=== PATIENT | male | born 1930 | race Caucasian/White ===

== ENCOUNTER 2016-08-13 01:00 | Emergency (ER) | payer MEDICARE ==
[2006-02-08 12:46] VITALS: BP 127/80
[~2016-08-13] VITALS: Ht 182.9 cm; Wt 72.7 kg
[~2016-08-13 01:00] MED LIST: ALBUTEROL SULF0.5 M1 IH; ALBUTEROL0.83 MG/ML; ALBUTEROL0.83 MG/ML IH; ALDACTONE 25MG25 MG PO; AMOXICILLIN875 MG PO; ASPI325T6 PO; ASPIR-LOX325 MG PO; ASPIRIN 32325 MG/TAB PO; ASPIRIN 81M81 MG/TA2 PO; ASPIRIN E.C. 8181 MG PO; ATENOLOL25 MG PO; AVAPRO TAB150 MG/TAB PO; CARDENE 20MG CA20 M1 PO; CARDENE20 MG PO; CLEOCIN HCL300 MG PO; COLACE 100100 MG/CAP PO; CORDARONE200 MG/TAB PO; COREG 6.256.25 MG/TA PO; COUMADIN 1MG1 MG/TAB PO; COUMADIN 2MG2 MG/TAB PO; COUMADIN 5MG5 MG/TAB PO; COUMADIN PO; DALIRESP500 MCG PO; DOXYCYCLINE 10100 MG PO; ELIQUIS 5MG PO; FERRO-TIME325 MG PO; FERROUS SU325 MG/TAB PO; FISH OIL CONC1000 MG PO; FORADIL AERO0.012 MG IH; FORADIL AERO0.012 MG PO; FORADIL PO; GLUCOPHAGE1000 MG PO; GLUCOPHAGE500 MG PO; GLUCOPHAGE500 MG/TAB PO; IMDUR 30MG30 MG/TAB PO; IMDUR 60MG60 MG/TAB PO; INCRUSE EL62.5 MCG/A IH; IRON325 M1 PO; KEPPRA 500MG500 MG PO; KEPPRA750 MG PO; LANOXIN 0.120.125 MG PO; LASIX 20MG TABL20 MG PO; LEVAQUIN 5500 MG/TA1 PO; LEVAQUIN 750MG750 M1 PO; LEXAPRO 10MG10 MG PO; LIPITOR 40MG TA40 MG PO; LIPITOR 80MG80 MG PO; LIPITOR20 MG PO; LIPITOR40 MG PO; LOPRESSOR 225 MG/TAB PO; LORTAB 5/500 501 TAB PO; LOVENOX100 MG/ML SC; METFORMIN500 MG PO; MIRALAX PA17 GM/Dose PO; MUCINEX 60600 MG/TA1 PO; MUCINEX D 600 M1 TER PO; MUCINEX1200 MG PO; MUCINEX600 M1 PO; MUCUS RELIEF200 MG PO; NEXIUM40 MG PO; NITROQUICK0.4 MG SL; NITROSTAT0.4 MG/TAB PO; NITROSTAT0.4 MG/TAB SL; NORCO 325 MG-51 TAB PO; OMEGA 31000 MG PO; OMEGA-3 FISH1000 MG PO; PACERONE200 MG PO; PEPCID 20MG TAB20 MG PO; PERFOROMIS20 MCG/2 M IH; PLAVIX 75MG TAB75 MG PO; PREDNISONE20 MG PO; PREVACID 15MG15 MG PO; PREVACID SOLUTA15 M1 PO; PROTONIX 40MG T40 MG PO; PULMICORT0.25 MG/2 IH; PULMICORT0.5 MG/21 IH; PULMICORT90 MCG/Act IH; QVAR0.08 MG/AC IH; RANEXA 500MG T500 MG PO; RAPAFLO4 MG PO; RAPAFLO8 MG PO; REQUIP 1MG T1 MG/TAB; REQUIP 1MG T1 MG/TAB PO; REQUIP0.25 MG PO; ROXANOL 20MG20 MG/ML; RT SPIRIVA18 MCG IH; SENNA8.6 MG PO; SENOKOT8.6 MG PO; SINEMET 25/101 UDTAB PO; SPIRIVA HANDIH18 MCG IH; SPIRIVA18 MCG IH; TENORMIN 2525 MG/TAB PO; TUSS PO; TYLENOL 325MG325 MG PO; TYLENOL 500MG500 MG PO; VENTOLIN0.09 MG IH; VICODIN 5/5001 UDTAB PO; VITAMIN B-1000 MCG/T PO; VITAMIN B121000 MC2 SL; XANAX 0.5MG0.5 MG PO; XANAX XR1 MG PO; ZANTAC; ZANTAC150 MG PO
[2016-08-13] MEDS ORDERED: BACTRIM DS 8001 TAB PO (01:32)
[2016-08-13] MEDS ORDERED: 00186-0370-20 IH (01:39)
[2016-08-13] MEDS ORDERED: COREG12.5 MG PO (01:41)
[2016-08-13] MEDS ORDERED: COZAAR 25MG25 MG/TAB PO (01:42)
[2016-08-13] MEDS ORDERED: ULTRAM 50MG TAB50 MG PO (02:09)
[2016-08-13] MEDS ORDERED: PERCOCET 325 MG1 TA2 PO (02:09)
[2016-08-13 02:19] VITALS: BP 115/66; PULSE 63; TEMP 98.2
== END 2016-08-13 02:25 | disposition home or self-care (01) ==
LOC: COL.ER 01:00
DX: H60.11 Cellulitis of right external ear (principal); I10 Essential (primary) hypertension; Z95.0 Presence of cardiac pacemaker

== ENCOUNTER 2016-10-10 17:18 | Emergency (ER) | payer MEDICARE ==
[2006-02-08 12:46] VITALS: BP 127/80
[~2016-10-10] VITALS: Ht 182.9 cm; Wt 75.9 kg
[~2016-10-10 17:18] MED LIST changes: +00186-0370-20 IH; +BACTRIM DS 8001 TAB PO; +COREG12.5 MG PO; +COZAAR 25MG25 MG/TAB PO; +PERCOCET 325 MG1 TA2 PO; +ULTRAM 50MG TAB50 MG PO
[2016-10-10 17:20] VITALS: TEMP 97.9
[2016-10-10 20:01] VITALS: BP 104/84; PULSE 71
== END 2016-10-10 20:01 | disposition home or self-care (01) ==
LOC: COL.ER 17:18
DX: I69.951 Hemiplegia and hemiparesis following unspecified cerebrovascular disease affecting right dominant side (principal)

== ENCOUNTER → 2016-11-08 | Outpatient (CLI) | payer MEDICARE | LOC: COL.RAD 07:28 | DX: I71.4 Abdominal aortic aneurysm, without rupture (principal); K40.90 Unilateral inguinal hernia, without obstruction or gangrene, not specified as recurrent; R22.2 Localized swelling, mass and lump, trunk ==

== ENCOUNTER → 2016-12-10 | Outpatient (CLI) | payer MEDICARE | LOC: COL.RAD 10:49 | DX: I51.7 Cardiomegaly (principal); I77.811 Abdominal aortic ectasia; I70.208 Unspecified atherosclerosis of native arteries of extremities, other extremity; N28.1 Cyst of kidney, acquired; I70.1 Atherosclerosis of renal artery; K55.1 Chronic vascular disorders of intestine | CPT/HCPCS: Q9967 ==

== ENCOUNTER 2017-05-30 18:23 | Emergency (ER) | payer MEDICARE ==
[2006-02-08 12:46] VITALS: BP 127/80
[~2017-05-30] VITALS: Ht 182.9 cm; Wt 72.7 kg
[2017-05-30 18:26] VITALS: TEMP 98.8
[2017-05-30 19:02] LABS: BASO # 0.1 (0.0-0.2); EOS # 0.2 (0.0-0.7); EOS % 4.6 % (0-4.0); GRAN # 3.3 (1.4-6.5); GRAN % 62.6 % (42.2-75.2); HEMATOCRIT 33.8 % (42.0-52.0); HEMOGLOBIN 11.1 g/dl (13.5-18.0); LYMPH # 1.2 (1.2-3.4); LYMPH % 23.2 % (20.0-51.0); MEAN CELL VOLUME 96 fl (80.0-100.0); MEAN CORPUSCULAR HEMOGLOBIN 31 pg (27.0-31.0); MEAN CORPUSCULAR HGB CONC 33 g/dl (33.0-37.0); MEAN PLATELET VOLUME 10.1 fl (7.4-10.4); MONO # 0.4 (0.1-0.6); MONO % 8.4 % (1.7-9.3); PLATELET COUNT 121 K/mm3 (130-400); RED BLOOD COUNT 3.54 M/mm3 (4.20-5.60); WHITE BLOOD COUNT 5.3 K/mm3 (4.8-10.8)
[2017-05-30 19:11] LABS: ADJUSTED CALCIUM 9.4 mg/dL (8.4-10.2); ALANINE AMINOTRANSFERASE 21 U/L (21-72); ALBUMIN 3.6 gm/dL (3.5-5.0); ALKALINE PHOSPHATASE 89 U/L (50-136); ANION GAP 6 mmol/L (7-16); BILIRUBIN,TOTAL 0.5 mg/dL (0.0-1.0); BLOOD UREA NITROGEN 25 mg/dL (9-20); CALCIUM 9.1 mg/dL (8.4-10.2); CARBON DIOXIDE 27 mmol/L (22-30); CHLORIDE 105 mmol/L (98-107); CREATININE, serum 1.05 mg/dL (0.66-1.25); GLUCOSE 78 mg/dL (74-106); POTASSIUM 4.5 mmol/L (3.4-5.0); SODIUM 139 mmol/L (137-145); TOTAL PROTEIN 6.4 gm/dL (6.4-8.2)
[2017-05-30 19:30] LABS: TROPONIN-I < 0.012 ng/mL (0.000-0.034)
[2017-05-30 21:08] LABS: COLLECTION METHOD CLEAN CATCH
[2017-05-30 21:15] LABS: MUCOUS Present /lpf; PH 5 (5-8); SQUAMOUS EPITHELIAL 0-2 /hpf; URINE APPEARANCE Clear; URINE BACTERIA None Seen /hpf; URINE BILIRUBIN Positive (NEGATIVE); URINE BLOOD Negative (NEGATIVE); URINE COLOR Yellow; URINE GLUCOSE Negative (NEGATIVE); URINE KETONE Trace (NEGATIVE); URINE LEUKOCYTE ESTERASE Trace (NEGATIVE); URINE PROTEIN(semi-quant) Negative (NEGATIVE)
[2017-05-30] MEDS ORDERED: NITROSTAT0.4 MG/TAB SL (21:34)
[2017-05-30 22:05] VITALS: BP 121/73; PULSE 60
== END 2017-05-30 22:48 | disposition home or self-care (01) ==
LOC: COL.ER 18:23
PROVIDERS: Emergency Medicine
DX: I25.119 Atherosclerotic heart disease of native coronary artery with unspecified angina pectoris (principal); R47.01 Aphasia; M62.81 Muscle weakness (generalized); I10 Essential (primary) hypertension; I48.91 Unspecified atrial fibrillation; G20 Parkinson's disease; Z95.5 Presence of coronary angioplasty implant and graft; Z79.84 Long term (current) use of oral hypoglycemic drugs; Z79.82 Long term (current) use of aspirin; Z95.0 Presence of cardiac pacemaker

== ENCOUNTER 2018-05-28 13:54 | Emergency (ER) | payer MEDICARE ==
[2006-02-08 12:46] VITALS: BP 127/80
[~2018-05-28] VITALS: Ht 172.7 cm; Wt 72.7 kg
[2018-05-28 13:57] VITALS: TEMP 97.2
[2018-05-28 15:21] LABS: BASO % 0.7 % (0.0-2.0); EOS # 0.2 (0.0-0.7); EOS % 3.8 % (0-4.0); GRAN # 3.7 (1.4-6.5); GRAN % 66.5 % (42.2-75.2); HEMOGLOBIN 11.3 g/dl (13.5-18.0); LYMPH # 1.2 (1.2-3.4); LYMPH % 21.3 % (20.0-51.0); MEAN CELL VOLUME 93 fl (80.0-100.0); MEAN CORPUSCULAR HEMOGLOBIN 31 pg (27.0-31.0); MEAN CORPUSCULAR HGB CONC 33 g/dl (33.0-37.0); MEAN PLATELET VOLUME 10.3 fl (7.4-10.4); MONO # 0.4 (0.1-0.6); MONO % 7.3 % (1.7-9.3); PLATELET COUNT 117 K/mm3 (130-400); RED BLOOD COUNT 3.68 M/mm3 (4.20-5.60)
[2018-05-28 15:22] LABS: HEMATOCRIT 34.2 % (42.0-52.0)
[2018-05-28 15:24] LABS: PROTHROMBIN TIME 11.8 SECONDS (9.7-12.8)
[2018-05-28 15:27] LABS: PARTIAL THROMBOPLASTIN TIME 34.5 SECONDS (26.0-37.0)
[2018-05-28 15:35] LABS: ALANINE AMINOTRANSFERASE 27 U/L (21-72); ALBUMIN 3.7 gm/dL (3.5-5.0); ALKALINE PHOSPHATASE 98 U/L (50-136); ANION GAP 6 mmol/L (7-16); AST,SGOT 23 U/L (15-37); BILIRUBIN,TOTAL 0.5 mg/dL (0.0-1.0); BLOOD UREA NITROGEN 17 mg/dL (9-20); CALCIUM 8.9 mg/dL (8.4-10.2); CARBON DIOXIDE 26 mmol/L (22-30); CHLORIDE 106 mmol/L (98-107); CREATININE, serum 0.78 mg/dL (0.66-1.25); GLUCOSE 162 mg/dL (74-106); POTASSIUM 4.4 mmol/L (3.4-5.0); SODIUM 138 mmol/L (137-145); TOTAL PROTEIN 6.6 gm/dL (6.4-8.2)
[2018-05-28 15:48] LABS: TROPONIN-I < 0.012 ng/mL (0.000-0.034)
[2018-05-28 19:22] VITALS: BP 134/75; PULSE 60
== END 2018-05-28 19:25 | disposition home or self-care (01) ==
LOC: COL.ER 13:54
PROVIDERS: Family Medicine
DX: R07.89 Other chest pain (principal); R41.82 Altered mental status, unspecified; G20 Parkinson's disease; Z79.82 Long term (current) use of aspirin
CPT/HCPCS: J2060

== ENCOUNTER 2018-05-31 19:17 | Emergency (ER) | payer MEDICARE ==
[2006-02-08 12:46] VITALS: BP 127/80
[~2018-05-31] VITALS: Ht 180.3 cm; Wt 72.7 kg
[2018-05-31 19:32] VITALS: TEMP 98.2
[2018-05-31 20:26] LABS: BASO % 0.8 % (0.0-2.0); EOS # 0.3 (0.0-0.7); EOS % 6.3 % (0-4.0); GRAN % 59.3 % (42.2-75.2); HEMATOCRIT 34.2 % (42.0-52.0); HEMOGLOBIN 11.4 g/dl (13.5-18.0); LYMPH # 1.3 (1.2-3.4); LYMPH % 24.8 % (20.0-51.0); MEAN CELL VOLUME 93 fl (80.0-100.0); MEAN CORPUSCULAR HEMOGLOBIN 31 pg (27.0-31.0); MEAN CORPUSCULAR HGB CONC 33 g/dl (33.0-37.0); MEAN PLATELET VOLUME 10.4 fl (7.4-10.4); MONO # 0.4 (0.1-0.6); MONO % 8.4 % (1.7-9.3); PLATELET COUNT 131 K/mm3 (130-400); RED BLOOD COUNT 3.66 M/mm3 (4.20-5.60)
[2018-05-31 20:39] LABS: ALBUMIN 3.7 gm/dL (3.5-5.0); BILIRUBIN,TOTAL 0.4 mg/dL (0.0-1.0); CALCIUM 8.9 mg/dL (8.4-10.2); CREATININE, serum 0.86 mg/dL (0.66-1.25); POTASSIUM 4.2 mmol/L (3.4-5.0); TOTAL PROTEIN 6.6 gm/dL (6.4-8.2)
[2018-05-31 20:44] LABS: ERYTHROCYTE SEDIMENTATION RATE 13 mm/hr (0-30)
[2018-05-31 22:02] VITALS: BP 121/72; PULSE 61
== END 2018-05-31 22:03 | disposition home or self-care (01) ==
LOC: COL.ER 19:17
PROVIDERS: Emergency Medicine
DX: R51 Headache (principal)

== ENCOUNTER → 2018-06-10 | Outpatient (CLI) | payer MEDICARE | LOC: COL.RAD 09:25 | DX: I65.23 Occlusion and stenosis of bilateral carotid arteries (principal); I65.01 Occlusion and stenosis of right vertebral artery; M96.1 Postlaminectomy syndrome, not elsewhere classified | CPT/HCPCS: Q9967 ==

== ENCOUNTER → 2018-07-10 | Outpatient (CLI) | payer MEDICARE | LOC: COL.RAD 07:45 | DX: I65.23 Occlusion and stenosis of bilateral carotid arteries (principal); I67.1 Cerebral aneurysm, nonruptured; G44.52 New daily persistent headache (NDPH) | CPT/HCPCS: Q9967 ==

== ENCOUNTER 2018-09-25 15:45 | Emergency (ER) | payer MEDICARE ==
[2006-02-08 12:46] VITALS: BP 127/80
[~2018-09-25] VITALS: Ht 180.3 cm; Wt 72.7 kg
[2018-09-25 15:48] VITALS: TEMP 97
[2018-09-25 16:08] LABS: BASO % 0.6 % (0.0-2.0); EOS # 0.2 (0.0-0.7); EOS % 4.4 % (0-4.0); GRAN # 3.2 (1.4-6.5); GRAN % 66.2 % (42.2-75.2); LYMPH % 19.9 % (20.0-51.0); MEAN CELL VOLUME 96 fl (80.0-100.0); MEAN CORPUSCULAR HEMOGLOBIN 31 pg (27.0-31.0); MEAN CORPUSCULAR HGB CONC 32 g/dl (33.0-37.0); MEAN PLATELET VOLUME 10.6 fl (7.4-10.4); MONO # 0.4 (0.1-0.6); MONO % 8.5 % (1.7-9.3); PLATELET COUNT 132 K/mm3 (130-400); RED BLOOD COUNT 3.56 M/mm3 (4.20-5.60); REDCELL DISTRIBUTION WIDTH-CV 14.1 % (11.5-14.5)
[2018-09-25 16:09] LABS: INR 1.1 (0.8-3.0); PROTHROMBIN TIME 12.8 SECONDS (9.7-12.8)
[2018-09-25 16:10] LABS: HEMATOCRIT 34.2 % (42.0-52.0)
[2018-09-25 16:12] LABS: ALBUMIN 3.9 gm/dL (3.5-5.0); BILIRUBIN,TOTAL 0.8 mg/dL (0.0-1.0); CALCIUM 9.2 mg/dL (8.4-10.2); CREATININE, serum 0.74 mg/dL (0.66-1.25); POTASSIUM 4.7 mmol/L (3.4-5.0); TOTAL PROTEIN 6.8 gm/dL (6.4-8.2)
[2018-09-25 18:30] VITALS: BP 150/83; PULSE 67
== END 2018-09-25 18:32 | disposition home or self-care (01) ==
LOC: COL.ER 15:45
PROVIDERS: Emergency Medicine
DX: S06.0X0A Concussion without loss of consciousness, initial encounter (principal); I25.10 Atherosclerotic heart disease of native coronary artery without angina pectoris; I48.91 Unspecified atrial fibrillation; F17.210 Nicotine dependence, cigarettes, uncomplicated; G20 Parkinson's disease; Z95.0 Presence of cardiac pacemaker; W19.XXXA Unspecified fall, initial encounter; Y92.009 Unspecified place in unspecified non-institutional (private) residence as the place of occurrence of the external cause
CPT/HCPCS: J7030

== ENCOUNTER 2018-11-07 07:27 | Day surgery (SDC) | payer MEDICARE ==
[2006-02-08 12:46] VITALS: BP 127/80
[~2018-11-07] VITALS: Ht 180.3 cm; Wt 77.0 kg
[2018-11-07] VITALS (12 sets, daily range): BP systolic 121–153; BP diastolic 61–81; PULSE 58–64; TEMP 98.4
[2018-11-07] MEDS ORDERED: PLAVIX 75MG TAB75 MG PO (08:07)
--- NOTE | 2018-11-07 08:14 | NUR ---
Initial visit; Patient and his thanked Graphics Specialist for offering encouragement and prayer prior to his 'Procedure'. Graphics Specialist prays for a successful procedure and thorough and rapid healing.
[2018-11-07 08:27] LABS: HEMOGLOBIN 10.2 g/dl (13.5-18.0); MEAN CELL VOLUME 98 fl (80.0-100.0); MEAN CORPUSCULAR HEMOGLOBIN 31 pg (27.0-31.0); MEAN CORPUSCULAR HGB CONC 32 g/dl (33.0-37.0); MEAN PLATELET VOLUME 10.5 fl (7.4-10.4); PLATELET COUNT 110 K/mm3 (130-400); RED BLOOD COUNT 3.29 M/mm3 (4.20-5.60); REDCELL DISTRIBUTION WIDTH-CV 13.6 % (11.5-14.5)
[2018-11-07 08:28] LABS: HEMATOCRIT 32.1 % (42.0-52.0)
[2018-11-07 08:34] LABS: INR 1.1 (0.8-3.0); PROTHROMBIN TIME 12.8 SECONDS (9.7-12.8)
[2018-11-07 08:37] LABS: CALCIUM 9.1 mg/dL (8.4-10.2); CREATININE, serum 0.83 (0.66-1.25); POTASSIUM 4.3 mmol/L (3.4-5.0)
--- NOTE | 2018-11-07 09:51 | NUR ---
SEE MERGE FOR ALL MEDICATION ADMINISTRATION TIME, RASS ASSESSMENT DURING AND POST PROCEDURE.
--- NOTE | 2018-11-07 10:45 | NUR ---
Back from labor gang supervisor by bed. Right groin CD&I, soft to palpation with good pedal pulses noted. VSS. Spouse bedside
--- NOTE | 2018-11-07 14:22 | NUR ---
Follow-up visit; Patient resting, inquired from his his current status which is currently optimistic. She thanked for looking in on Rell following his Procedure. offered God's blessings.
--- NOTE | 2018-11-07 15:17 | NUR ---
INT discontinued intact. Discharge instructions given.
--- NOTE | 2018-11-07 15:30 | NUR ---
Transferred to private car by trae
== END 2018-11-07 15:30 | disposition home or self-care (01) ==
LOC: COL.CAR 07:27
PROVIDERS: Internal Medicine Interventional Cardiology
DX: I25.10 Atherosclerotic heart disease of native coronary artery without angina pectoris (principal); I47.2 Ventricular tachycardia; I73.9 Peripheral vascular disease, unspecified; I95.9 Hypotension, unspecified; R55 Syncope and collapse; M79.604 Pain in right leg; M79.605 Pain in left leg; I48.2 Chronic atrial fibrillation; I50.22 Chronic systolic (congestive) heart failure; E11.9 Type 2 diabetes mellitus without complications; J44.9 Chronic obstructive pulmonary disease, unspecified; E78.5 Hyperlipidemia, unspecified; G20 Parkinson's disease; Z86.73 Personal history of transient ischemic attack (TIA), and cerebral infarction without residual deficits; Z82.3 Family history of stroke; Z87.891 Personal history of nicotine dependence; Z95.5 Presence of coronary angioplasty implant and graft; Z88.0 Allergy status to penicillin; Z88.1 Allergy status to other antibiotic agents
CPT/HCPCS: C1760; C1769; C1887; C1894; J1644; J2250; J3010; Q9967

== ENCOUNTER 2018-11-08 18:19 | Emergency (ER) | payer MEDICARE ==
[2006-02-08 12:46] VITALS: BP 127/80
[2018-11-08 18:29] VITALS: TEMP 97.1
[2018-11-08 18:39] LABS: BASO % 0.7 % (0.0-2.0); EOS # 0.3 (0.0-0.7); EOS % 5.6 % (0-4.0); GRAN % 66.2 % (42.2-75.2); HEMATOCRIT 34.3 % (42.0-52.0); HEMOGLOBIN 10.8 g/dl (13.5-18.0); LYMPH # 0.8 (1.2-3.4); LYMPH % 17.9 % (20.0-51.0); MEAN CELL VOLUME 98 fl (80.0-100.0); MEAN CORPUSCULAR HEMOGLOBIN 31 pg (27.0-31.0); MEAN CORPUSCULAR HGB CONC 32 g/dl (33.0-37.0); MEAN PLATELET VOLUME 10.5 fl (7.4-10.4); MONO # 0.4 (0.1-0.6); MONO % 9.2 % (1.7-9.3); PLATELET COUNT 119 K/mm3 (130-400); REDCELL DISTRIBUTION WIDTH-CV 13.6 % (11.5-14.5)
[2018-11-08 18:48] LABS: ALANINE AMINOTRANSFERASE < 6 U/L (21-72); ALBUMIN 3.7 gm/dL (3.5-5.0); ALKALINE PHOSPHATASE 108 U/L (50-136); ANION GAP 10 mmol/L (7-16); AST,SGOT 23 U/L (15-37); BILIRUBIN,TOTAL 0.7 mg/dL (0.0-1.0); BLOOD UREA NITROGEN 17 mg/dL (9-20); CALCIUM 9.2 mg/dL (8.4-10.2); CARBON DIOXIDE 28 mmol/L (22-30); CHLORIDE 106 mmol/L (98-107); CREATININE, serum 0.79 (0.66-1.25); GLUCOSE 84 mg/dL (74-106); POTASSIUM 4.2 mmol/L (3.4-5.0); SODIUM 143 mmol/L (137-145); TOTAL PROTEIN 6.6 gm/dL (6.4-8.2)
[2018-11-08 19:02] LABS: TROPONIN-I 0.064 ng/mL (0.000-0.035)
[2018-11-08 22:54] VITALS: BP 144/78; PULSE 66
== END 2018-11-08 22:58 | disposition home or self-care (01) ==
LOC: COL.ER 18:19
PROVIDERS: Emergency Medicine
DX: R53.1 Weakness (principal); R47.01 Aphasia; Z79.82 Long term (current) use of aspirin; Z79.02 Long term (current) use of antithrombotics/antiplatelets
CPT/HCPCS: J7030

== ENCOUNTER 2019-02-06 11:23 | Emergency (ER) | payer MEDICARE ==
[2006-02-08 12:46] VITALS: BP 127/80
[~2019-02-06] VITALS: Ht 180.3 cm; Wt 72.7 kg
[2019-02-06 11:49] VITALS: TEMP 98.2
[2019-02-06 12:30] LABS: BASO % 0.7 % (0.0-2.0); EOS # 0.1 (0.0-0.7); EOS % 2.2 % (0-4.0); GRAN % 73.9 % (42.2-75.2); HEMATOCRIT 37.8 % (42.0-52.0); HEMOGLOBIN 12.3 g/dl (13.5-18.0); LYMPH # 0.6 (1.2-3.4); LYMPH % 14.4 % (20.0-51.0); MEAN CELL VOLUME 93 fl (80.0-100.0); MEAN CORPUSCULAR HEMOGLOBIN 30 pg (27.0-31.0); MEAN CORPUSCULAR HGB CONC 33 g/dl (33.0-37.0); MEAN PLATELET VOLUME 9.9 fl (7.4-10.4); MONO # 0.4 (0.1-0.6); MONO % 8.8 % (1.7-9.3); PLATELET COUNT 99 K/mm3 (130-400); RED BLOOD COUNT 4.05 M/mm3 (4.20-5.60); REDCELL DISTRIBUTION WIDTH-CV 14.8 % (11.5-14.5)
[2019-02-06 12:31] LABS: ALBUMIN 3.7 gm/dL (3.5-5.0); BILIRUBIN,TOTAL 0.8 mg/dL (0.0-1.0); C-REACTIVE PROTEIN 1.8 mg/dL (0.0-0.9); CREATININE, serum 0.84 (0.66-1.25); TOTAL PROTEIN 6.5 gm/dL (6.4-8.2)
[2019-02-06] MEDS ORDERED: LIPITOR 80MG80 MG PO (14:03)
[2019-02-06] MEDS ORDERED: INCRUSE EL62.5 MCG/A IH (14:05)
[2019-02-06] MEDS ORDERED: PLETAL 100MG T100 MG PO (14:06)
[2019-02-06] MEDS ORDERED: 00186-0372-20 IH (14:06)
[2019-02-06 15:00] VITALS: BP 134/74; PULSE 63
== END 2019-02-06 15:23 | disposition home or self-care (01) ==
LOC: COL.ER 11:23
PROVIDERS: Emergency Medicine
DX: R19.7 Diarrhea, unspecified (principal); Z79.02 Long term (current) use of antithrombotics/antiplatelets; Z79.84 Long term (current) use of oral hypoglycemic drugs
CPT/HCPCS: J7030

== ENCOUNTER 2019-06-12 13:28 | Inpatient (IN) | payer MEDICARE ==
[~2019-06-12] VITALS: Ht 180.3 cm; Wt 72.5 kg
[~2019-06-12 13:28] MED LIST changes: +00186-0372-20 IH; +PLETAL 100MG T100 MG PO
[2019-06-12 14:10] VITALS: BP 136/67; PULSE 73; TEMP 97.7
[2019-06-12 15:17] LABS: BASO % 0.3 % (0.0-2.0); EOS % 0.3 % (0-4.0); GRAN # 2.6 (1.4-6.5); GRAN % 74.9 % (42.2-75.2); LYMPH # 0.5 (1.2-3.4); LYMPH % 14.8 % (20.0-51.0); MEAN CELL VOLUME 93 fl (80.0-100.0); MEAN CORPUSCULAR HGB CONC 32 g/dl (33.0-37.0); MEAN PLATELET VOLUME 9.3 fl (7.4-10.4); MONO # 0.3 (0.1-0.6); MONO % 9.4 % (1.7-9.3); PLATELET COUNT 109 K/mm3 (130-400); RED BLOOD COUNT 2.34 M/mm3 (4.20-5.60); REDCELL DISTRIBUTION WIDTH-CV 16.5 % (11.5-14.5)
[2019-06-12 15:18] LABS: HEMATOCRIT 21.8 % (42.0-52.0); MEAN CORPUSCULAR HEMOGLOBIN 30 pg (27.0-31.0)
[2019-06-12 15:26] LABS: ALBUMIN 2.9 gm/dL (3.5-5.0); BILIRUBIN,TOTAL 0.8 mg/dL (0.0-1.0); CALCIUM 8.2 mg/dL (8.4-10.2); CREATININE, serum 0.77 (0.66-1.25); MAGNESIUM 1.7 mg/dL (1.6-2.3); POTASSIUM 3.1 mmol/L (3.4-5.0); TOTAL PROTEIN 5.5 gm/dL (6.4-8.2)
--- NOTE | 2019-06-12 15:55 | NUR ---
PT ADMITTED TO ROOM 343 BY WHEEL CHAIR. ASSISTED PT INTO GOWN AND BED. PT HAS PARKINSONS WITH PARKINSONIAN GAIT. LUNGS CLEAR. BOWEL SOUNDS PRESENT. 2 ATTEMPTS TO START IV UNSUCESSFUL.
[2019-06-12 18:24] LABS: COLLECTION METHOD CLEAN CATCH
[2019-06-12 18:33] LABS: MUCOUS Present /lpf; PH 5 (5-8); SQUAMOUS EPITHELIAL 0-2 /hpf; URINE APPEARANCE Cloudy; URINE BACTERIA None Seen /hpf; URINE BILIRUBIN Positive (NEGATIVE); URINE BLOOD 3+ (NEGATIVE); URINE CALCIUM OXALATE CRYSTAL Present /hpf; URINE COLOR Amber; URINE GLUCOSE Negative (NEGATIVE); URINE KETONE Trace (NEGATIVE); URINE LEUKOCYTE ESTERASE Trace (NEGATIVE); URINE NITRATE Negative (NEGATIVE); URINE PROTEIN(semi-quant) 2+ (NEGATIVE); URINE RBC >50 /hpf
--- NOTE | 2019-06-12 18:47 | NUR ---
REPORT TO LEIGHTON MENDEZ.
[2019-06-12 19:31] VITALS: BP 122/57; PULSE 61; TEMP 98
--- NOTE | 2019-06-12 21:00 | NUR ---
PT assessed, denies pain or discomfort, answers questions appropriately. Call light within reach, will continue to monitor.
[2019-06-13] VITALS (12 sets, daily range): BP systolic 105–145; BP diastolic 48–89; PULSE 59–124; TEMP 97.1–98.9
[2019-06-13 01:28] LABS: BASO % 0.2 % (0.0-2.0); EOS % 0.5 % (0-4.0); GRAN # 3.4 (1.4-6.5); GRAN % 79.1 % (42.2-75.2); LYMPH # 0.5 (1.2-3.4); LYMPH % 12.1 % (20.0-51.0); MEAN CELL VOLUME 92 fl (80.0-100.0); MEAN CORPUSCULAR HGB CONC 32 g/dl (33.0-37.0); MEAN PLATELET VOLUME 9.2 fl (7.4-10.4); MONO # 0.3 (0.1-0.6); MONO % 7.6 % (1.7-9.3); PLATELET COUNT 103 K/mm3 (130-400); RED BLOOD COUNT 2.28 M/mm3 (4.20-5.60); REDCELL DISTRIBUTION WIDTH-CV 16.5 % (11.5-14.5)
[2019-06-13 01:31] LABS: HEMATOCRIT 20.9 % (42.0-52.0); HEMOGLOBIN 6.7 g/dl (13.5-18.0); MEAN CORPUSCULAR HEMOGLOBIN 29 pg (27.0-31.0)
[2019-06-13 01:38] LABS: CREATININE, serum 0.73 (0.66-1.25); MAGNESIUM 2.1 mg/dL (1.6-2.3); POTASSIUM 3.4 mmol/L (3.4-5.0)
--- NOTE | 2019-06-13 08:00 | NUR ---
Patient resting in bed at this time. Patient is alert and oriented, answers questions appropriately. Patient denies pain at this time, reports one tarry stool this morning. Patient denies further needs at this time, call light within reach.
[2019-06-13 08:17] LABS: BASO % 0.4 % (0.0-2.0); EOS % 0.2 % (0-4.0); GRAN # 4.4 (1.4-6.5); LYMPH # 0.3 (1.2-3.4); LYMPH % 6.7 % (20.0-51.0); MEAN CELL VOLUME 92 fl (80.0-100.0); MEAN CORPUSCULAR HGB CONC 32 g/dl (33.0-37.0); MEAN PLATELET VOLUME 9.7 fl (7.4-10.4); MONO # 0.3 (0.1-0.6); MONO % 6.3 % (1.7-9.3); PLATELET COUNT 126 K/mm3 (130-400); RED BLOOD COUNT 2.87 M/mm3 (4.20-5.60); REDCELL DISTRIBUTION WIDTH-CV 16.3 % (11.5-14.5)
[2019-06-13 08:39] LABS: CALCIUM 8.2 mg/dL (8.4-10.2); CREATININE, serum 0.74 (0.66-1.25); MAGNESIUM 2.1 mg/dL (1.6-2.3); POTASSIUM 4.6 mmol/L (3.4-5.0)
[2019-06-13 08:51] LABS: HEMATOCRIT 26.4 % (42.0-52.0); HEMOGLOBIN 8.4 g/dl (13.5-18.0); MEAN CORPUSCULAR HEMOGLOBIN 29 pg (27.0-31.0)
--- NOTE | 2019-06-13 10:55 | NUR ---
Visited, listened, and provided spiritual care.
--- NOTE | 2019-06-13 18:47 | NUR ---
Bowel prep initiated, patient and educated on how often to drink solution and to use call light to call for assistance to bathroom. Patient and verbalize understanding, call light within reach, further needs denied.
--- NOTE | 2019-06-13 19:10 | NUR ---
Lying in bed on left siide. Denies pain or nausea. Patient is aware of the bowel prep and how to complete. Patient has a moist nonproductive cough, according to the patient he has had this for the past couple days. Bruising noted to right eye and scattered throughout body. Patient denies further needs at this time.
[2019-06-14] VITALS (8 sets, daily range): BP systolic 89–129; BP diastolic 52–74; PULSE 59–77; TEMP 98.2–98.4
--- NOTE | 2019-06-14 07:55 | NUR ---
Patient in bed at this time, patient is alert and oriented, answers questions appropriately. Consents signed for EGD and colonoscopy, fluids hung and patient in a clean gown. Patient left the floor at approximately 0800
[2019-06-14 07:59] LABS: BASO % 0.2 % (0.0-2.0); GRAN # 5.4 (1.4-6.5); GRAN % 85.5 % (42.2-75.2); LYMPH # 0.4 (1.2-3.4); MEAN CELL VOLUME 92 fl (80.0-100.0); MEAN CORPUSCULAR HGB CONC 32 g/dl (33.0-37.0); MEAN PLATELET VOLUME 10.1 fl (7.4-10.4); MONO # 0.4 (0.1-0.6); MONO % 6.7 % (1.7-9.3); PLATELET COUNT 135 K/mm3 (130-400); RED BLOOD COUNT 2.99 M/mm3 (4.20-5.60); REDCELL DISTRIBUTION WIDTH-CV 16.6 % (11.5-14.5)
[2019-06-14 08:04] LABS: HEMATOCRIT 27.6 % (42.0-52.0); HEMOGLOBIN 8.8 g/dl (13.5-18.0); MEAN CORPUSCULAR HEMOGLOBIN 29 pg (27.0-31.0)
[2019-06-14 08:28] LABS: CALCIUM 8.4 mg/dL (8.4-10.2); CREATININE, serum 0.75 (0.66-1.25); POTASSIUM 4.3 mmol/L (3.4-5.0)
--- NOTE | 2019-06-14 09:10 | NUR ---
Patient arrived back to floor via bed from PACU. Patient is sleeping but easily rousable, alert and oriented while awake. Post op checks initiated. Call light within reach, patient denies needs at this time.
--- NOTE | 2019-06-14 16:55 | NUR ---
Patient resting in bed at this time. at bedside. Patient denies pain, nausea/vomiting, or needs, call light within reach.
--- NOTE | 2019-06-14 18:45 | NUR ---
Sitting up in bed. Patient denies pain. Says that the aoc director intelligence officer was in this evening and cleared him for surgery. Patient expresses that he wants to proceed forth with surgery tomorrow to try to get better. Patient denies any further needs at this time.
--- NOTE | 2019-06-14 22:35 | NUR ---
Lying in bed with eyes closed. Respirations even and unlabored. No signs or symptoms of discomfort noted.
[2019-06-15] VITALS (7 sets, daily range): BP systolic 100–131; BP diastolic 57–79; PULSE 60–107; TEMP 97–98.1
--- NOTE | 2019-06-15 06:18 | NUR ---
Lying in bed with eyes closed. Eyes open when name called out. Denies pain or any concerns or needs at this time.
[2019-06-15 06:46] LABS: BASO % 0.2 % (0.0-2.0); EOS % 0.7 % (0-4.0); GRAN # 3.2 (1.4-6.5); GRAN % 78.9 % (42.2-75.2); LYMPH # 0.5 (1.2-3.4); LYMPH % 12.4 % (20.0-51.0); MEAN CELL VOLUME 93 fl (80.0-100.0); MEAN CORPUSCULAR HGB CONC 31 g/dl (33.0-37.0); MEAN PLATELET VOLUME 9.9 fl (7.4-10.4); MONO # 0.3 (0.1-0.6); MONO % 7.3 % (1.7-9.3); PLATELET COUNT 120 K/mm3 (130-400); RED BLOOD COUNT 2.86 M/mm3 (4.20-5.60); REDCELL DISTRIBUTION WIDTH-CV 16.6 % (11.5-14.5)
[2019-06-15 06:48] LABS: HEMATOCRIT 26.5 % (42.0-52.0); HEMOGLOBIN 8.3 g/dl (13.5-18.0); MEAN CORPUSCULAR HEMOGLOBIN 29 pg (27.0-31.0)
--- NOTE | 2019-06-15 08:00 | NUR ---
PATIENT SITTING UP IN BED WITH HIS BREAKFAST TRAY AND PRESENT AT THE BEDSIDE. PATIENT IS A&OX4. VSS. BOWEL SOUNDS ACTIVE ALL FOUR QUADRANTS. PATIENT TOLERATING DIET WITHOUT ANY COMPLAINTS OF N/V. LEFT AC TO INT. POSITIVE PEDAL PULSES EQUAL BILATERALLY. ECCHYMOSIS TO RIGHT EYE. CALL LIGHT WITHIN REACH. PATIENT DENIES ANY OTHER NEEDS AT THIS TIME.
[2019-06-15 10:07] LABS: CALCIUM 8.2 mg/dL (8.4-10.2); CREATININE, serum 0.74 (0.66-1.25); POTASSIUM 3.9 mmol/L (3.4-5.0)
--- NOTE | 2019-06-15 10:54 | NUR ---
Initial visit; Patient and his thanked Fisher Spear for looking in on him, offering prayer and spiritual care.
--- NOTE | 2019-06-15 13:45 | NUR ---
SW met with the patient to discuss discharge plan. The patient lives in [facility] with his , Rocio (ph#[phone]). He reports independence with ADLs and has a cane, walker, and wheelchair. The patient's PCP is Dr. Ambrocio Arizmendi and he receives his medications at [facility]. He reports no difficulties obtaining his meds. The patient does not have advanced directives in EMR, but he states that he does have them completed. He states that his is his DPOA-HC. The patient plans to return home with his upon discharge. SW discussed home health services. The patient reports that he will just have to see how things go, to decide if he wants them. SW to continue to follow.
--- NOTE | 2019-06-15 19:26 | NUR ---
REPORT GIVEN TO ANDREA DIEZ.
--- NOTE | 2019-06-15 21:37 | NUR ---
Pt doing ok. Assessment completed. A/o with VSS. Denies pain at this time. Took PM meds without difficulty. Denies needs at this time. Call light within reach, will continue to monitor
--- NOTE | 2019-06-15 23:47 | NUR ---
Patient had soft-formed medium BM, brown in color. No blood noted.
[2019-06-16] VITALS (11 sets, daily range): BP systolic 106–147; BP diastolic 55–88; PULSE 59–91; TEMP 97.4–98.1
[2019-06-16 06:54] LABS: CALCIUM 8.1 mg/dL (8.4-10.2); CREATININE, serum 0.74 (0.66-1.25)
[2019-06-16 07:13] LABS: BASO % 0.2 % (0.0-2.0); EOS % 0.5 % (0-4.0); GRAN # 3.5 (1.4-6.5); GRAN % 81.7 % (42.2-75.2); LYMPH # 0.4 (1.2-3.4); LYMPH % 10.3 % (20.0-51.0); MEAN CELL VOLUME 92 fl (80.0-100.0); MEAN CORPUSCULAR HGB CONC 32 g/dl (33.0-37.0); MEAN PLATELET VOLUME 10.1 fl (7.4-10.4); MONO # 0.3 (0.1-0.6); MONO % 6.8 % (1.7-9.3); PLATELET COUNT 132 K/mm3 (130-400); RED BLOOD COUNT 2.67 M/mm3 (4.20-5.60); REDCELL DISTRIBUTION WIDTH-CV 16.5 % (11.5-14.5)
[2019-06-16 07:15] LABS: HEMATOCRIT 24.6 % (42.0-52.0); HEMOGLOBIN 7.8 g/dl (13.5-18.0); MEAN CORPUSCULAR HEMOGLOBIN 29 pg (27.0-31.0)
--- NOTE | 2019-06-16 08:00 | NUR ---
PATIENT RESTING IN BED THIS MORNING. PATIENT IS A&OX4. VSS. PATIENT DENIES ANY BLOOD PRESENT WITH BOWEL MOVEMENTS. SEE MORNING SHIFT ASSESSMENT. PRESENT AT THE BEDSIDE. CALL LIGHT WITHIN REACH. PATIENT DENIES ANY OTHER NEEDS AT THIS TIME.
--- NOTE | 2019-06-16 09:43 | NUR ---
Follow-up visit; Patient thanked Senior Lead Software Engineer for stopping to check on him this morning. Patient appears to be feeling a little better this morning and states he is "ready to get on with things."
--- NOTE | 2019-06-16 11:30 | NUR ---
DR. BRIGGS CALLED AND NOTIFIED OF 20 BEAT RUN OF V-TACH THIS MORNING AT 1003. NO ORDERS GIVEN AT THIS TIME.
--- NOTE | 2019-06-16 16:18 | NUR ---
BLOOD TRANSFUSION STARTED AND INFUSING TO RUE IV AT 60 MLS/HR. PATIENT RESTING IN BED. VSS. WILL CONTINUE TO MONITOR.
--- NOTE | 2019-06-16 16:33 | NUR ---
PATIENT TOLERATING BLOOD TRANSFUSION WITHOUT ANY ADVERSE REACTIONS. RATE INCREASED TO 120 MLS/HR. WILL CONTINUE TO MONITOR.
--- NOTE | 2019-06-16 19:16 | NUR ---
PATIENT BLOOD TRANSFUSION COMPLETE. PATIENT TOLERATED WELL WITHOUT ANY ADVERSE REACTIONS. VITAL SIGNS STABLE. CALL LIGHT WITHIN REACH. PATIENT DENIES ANY OTHER NEEDS AT THIS TIME. BEDSIDE SHIFT REPORT GIVEN TO ANDREA DIEZ.
[2019-06-16 21:30] LABS: BASO % 0.4 % (0.0-2.0); EOS % 0.6 % (0-4.0); GRAN % 79.2 % (42.2-75.2); LYMPH # 0.6 (1.2-3.4); LYMPH % 11.8 % (20.0-51.0); MEAN CELL VOLUME 92 fl (80.0-100.0); MEAN CORPUSCULAR HGB CONC 32 g/dl (33.0-37.0); MEAN PLATELET VOLUME 9.7 fl (7.4-10.4); MONO # 0.4 (0.1-0.6); MONO % 7.6 % (1.7-9.3); PLATELET COUNT 137 K/mm3 (130-400); RED BLOOD COUNT 3.12 M/mm3 (4.20-5.60); REDCELL DISTRIBUTION WIDTH-CV 16.7 % (11.5-14.5)
[2019-06-16 21:32] LABS: HEMATOCRIT 28.6 % (42.0-52.0); HEMOGLOBIN 9.2 g/dl (13.5-18.0); MEAN CORPUSCULAR HEMOGLOBIN 29 pg (27.0-31.0)
--- NOTE | 2019-06-16 22:15 | NUR ---
Pt doing very well. Completed blood transfusion at end of day shift. Tolerated well. CBC drawn, awaiting results. Alert and oriented with VSS. Patient states he "feels so much better" after receiving transfusion. Ambulatory, walked in hallway 200ft with ENVIRONMENTAL HEALTH SAFETY ENGINEER. Denies pain at this time. Took PM meds without difficulty. Call light within reach, will continue to monitor
[2019-06-17] VITALS (7 sets, daily range): BP systolic 120–156; BP diastolic 56–93; PULSE 60–70; TEMP 97.3–98.2
--- NOTE | 2019-06-17 04:09 | NUR ---
Patient has had an uneventful night, no concerns.
[2019-06-17 07:07] LABS: BASO % 0.2 % (0.0-2.0); EOS % 0.4 % (0-4.0); GRAN # 3.7 (1.4-6.5); GRAN % 78.1 % (42.2-75.2); HEMATOCRIT 28.4 % (42.0-52.0); HEMOGLOBIN 9.1 g/dl (13.5-18.0); LYMPH # 0.7 (1.2-3.4); LYMPH % 13.9 % (20.0-51.0); MEAN CELL VOLUME 91 fl (80.0-100.0); MEAN CORPUSCULAR HEMOGLOBIN 29 pg (27.0-31.0); MEAN CORPUSCULAR HGB CONC 32 g/dl (33.0-37.0); MEAN PLATELET VOLUME 9.8 fl (7.4-10.4); MONO # 0.3 (0.1-0.6); PLATELET COUNT 138 K/mm3 (130-400); RED BLOOD COUNT 3.11 M/mm3 (4.20-5.60); REDCELL DISTRIBUTION WIDTH-CV 16.6 % (11.5-14.5)
[2019-06-17 07:20] LABS: CALCIUM 8.1 mg/dL (8.4-10.2); CREATININE, serum 0.71 (0.66-1.25); POTASSIUM 4.2 mmol/L (3.4-5.0)
--- NOTE | 2019-06-17 19:47 | NUR ---
Lying in bed on left side. Denies pain. Bruising noted to right eye. Patient voices no complaints or needs at this time.
[2019-06-18] VITALS (10 sets, daily range): BP systolic 120–144; BP diastolic 55–73; PULSE 59–68; TEMP 97.2–98.8
--- NOTE | 2019-06-18 00:08 | NUR ---
Lying in bed with eyes closed. Opens eyes when name called out. Denies pain or any further needs at this time.
--- NOTE | 2019-06-18 03:52 | NUR ---
Lying in bed with eyes closed. Respirations even and unlabored. Opens eyes when name called out. Denies pain or any needs at this time.
--- NOTE | 2019-06-18 05:50 | NUR ---
Lying in bed with eyes closed. Eyes open when name called out. Patient denies any pain or needs at this time.
[2019-06-18 08:03] LABS: BASO % 0.4 % (0.0-2.0); EOS # 0.1 (0.0-0.7); GRAN # 3.9 (1.4-6.5); GRAN % 76.5 % (42.2-75.2); LYMPH # 0.6 (1.2-3.4); LYMPH % 12.6 % (20.0-51.0); MEAN CELL VOLUME 93 fl (80.0-100.0); MEAN CORPUSCULAR HGB CONC 32 g/dl (33.0-37.0); MEAN PLATELET VOLUME 9.6 fl (7.4-10.4); MONO # 0.5 (0.1-0.6); MONO % 8.9 % (1.7-9.3); PLATELET COUNT 143 K/mm3 (130-400); RED BLOOD COUNT 3.09 M/mm3 (4.20-5.60); REDCELL DISTRIBUTION WIDTH-CV 16.6 % (11.5-14.5)
[2019-06-18 08:04] LABS: HEMATOCRIT 28.6 % (42.0-52.0); MEAN CORPUSCULAR HEMOGLOBIN 29 pg (27.0-31.0)
[2019-06-18 08:15] LABS: CALCIUM 8.2 mg/dL (8.4-10.2); CREATININE, serum 0.74 (0.66-1.25); POTASSIUM 4.6 mmol/L (3.4-5.0)
--- NOTE | 2019-06-18 10:12 | NUR ---
Assessment completed, alert/oriented, vital signs sable, denies pain at this time, denies any N/V, hemaglobin stable at 9.1, denies any bloody stools or urine, heart RRR/ paced on tele, no resp.difficulty noted and lungs CTA, patient has eaten breakfast and feeling "pretty good", scheduled for hemicolectomy with on 06/19/19, denies other needs at this time
--- NOTE | 2019-06-18 10:45 | NUR ---
Follow-up visit; Patient thanked Technical Sourcing Recruiter for offering support and encouragement and continuing to look in on him and offer God's blessings. Technical Sourcing Recruiter will follow up tomorrow.
--- NOTE | 2019-06-18 19:11 | NUR ---
Sitting up in pain. Has mild discomfort that comes and goes in right shoulder. Per the patient he has had this for several days and thinks that it is due to sleeping the wrong way. Patient denies pain. Says that he is having normal bowel movements and urinating without difficulty. Discussed with the patient on receiving unit of blood tonight and patient understands. Discussed procedure scheduled for tomorrow. Patient declines further needs at this time.
--- NOTE | 2019-06-18 20:59 | NUR ---
One unit PRBC picked up from lab. Verified by ANDREA Harris, and this nurse. Patient instructed on side effects to monitor for and process of blood transfusion and monitoring of vital signs. Infusion started at this time at 60mL/hr.
--- NOTE | 2019-06-18 21:16 | NUR ---
Vital signs stable. No signs or symptoms of adverse reaction at this time. Patient says that he is feeling fine. Rate of PRBC infusion increased to 150mL/hr.
--- NOTE | 2019-06-18 21:54 | NUR ---
Sitting up in bed watching TV. PRBC continues to infuse at 150mL/hr. Patient says that he is feeling fine at this time. No signs or symptoms of adverse effects at this time. Vital signs stable. Patient denies further needs at this time.
--- NOTE | 2019-06-18 22:50 | NUR ---
Infusion continues to infuse at 150mL/hr. No adverse reactions noted. Vital signs stable. Patient says that he continues to feel fine. Denies any needs at this time.
--- NOTE | 2019-06-18 23:10 | NUR ---
Transfusion completed. Vital signs stable. Patient denies any adverse effects.
[2019-06-19] VITALS (14 sets, daily range): BP systolic 128–148; BP diastolic 65–76; PULSE 58–66; TEMP 97.5–98.6
--- NOTE | 2019-06-19 03:37 | NUR ---
Lying in bed with eyes closed. Respirations even and unlabored. Opens eyes when name called out. Denies pain. Vital signs continue to be stable. Patient denies further needs at this time.
[2019-06-19 08:47] LABS: BASO % 0.4 % (0.0-2.0); EOS # 0.1 (0.0-0.7); GRAN % 79.3 % (42.2-75.2); LYMPH # 0.5 (1.2-3.4); LYMPH % 10.7 % (20.0-51.0); MEAN CELL VOLUME 92 fl (80.0-100.0); MEAN CORPUSCULAR HGB CONC 32 g/dl (33.0-37.0); MEAN PLATELET VOLUME 9.3 fl (7.4-10.4); MONO # 0.4 (0.1-0.6); MONO % 8.2 % (1.7-9.3); PLATELET COUNT 147 K/mm3 (130-400); RED BLOOD COUNT 3.37 M/mm3 (4.20-5.60); REDCELL DISTRIBUTION WIDTH-CV 16.8 % (11.5-14.5)
[2019-06-19 08:48] LABS: HEMATOCRIT 31.1 % (42.0-52.0); HEMOGLOBIN 9.9 g/dl (13.5-18.0); MEAN CORPUSCULAR HEMOGLOBIN 29 pg (27.0-31.0)
[2019-06-19 09:10] LABS: CALCIUM 8.2 mg/dL (8.4-10.2); CREATININE, serum 0.67 (0.66-1.25); POTASSIUM 4.3 mmol/L (3.4-5.0)
--- NOTE | 2019-06-19 10:06 | NUR ---
Follow-up visit; Tree Topper listened and offered encouragement and Spiritual Care along with prayer prior to his surgical procedure.
--- NOTE | 2019-06-19 13:30 | NUR ---
Patient has gone down for surgery. Consent on chart. Family followed patient down. Patient showered with surgical scrub this am before surgery. No other changes at this time.
--- NOTE | 2019-06-19 17:45 | NUR ---
Patient is back from surgery. He is alert but is only able to answer yes or no questions. He does not seem confused. He denies pain. No other changes at this time. Vital signs stable. Call light within reach.
--- NOTE | 2019-06-19 20:17 | NUR ---
PATIENT AWAKE, IS ALERT AND ORIENTED X3. HAS RIGHT PICC WITH IVF INFUSING AT 75CC/HR WITHOUT PROBLEM. REPORTS PAIN TO ABDOMEN 5/10, MEDICATED WITH TRAMADOL 50MG WELL HS MEDS. ROBOTIC SITES GLUED/DRY. OXYGEN AT 1L/NC.
[2019-06-20] VITALS (7 sets, daily range): BP systolic 99–143; BP diastolic 60–80; PULSE 59–80; TEMP 97.2–99.4
--- NOTE | 2019-06-20 05:00 | NUR ---
Assisted with standing at bedside and using urinal. Patient then ambulated to sink to put dentures in. Sitting at bedside after that.
--- NOTE | 2019-06-20 06:00 | NUR ---
Denies need for pain meds at this time.
[2019-06-20 07:30] LABS: BASO % 0.1 % (0.0-2.0); GRAN # 9.3 (1.4-6.5); GRAN % 86.6 % (42.2-75.2); HEMOGLOBIN 10.6 g/dl (13.5-18.0); LYMPH # 0.7 (1.2-3.4); LYMPH % 6.3 % (20.0-51.0); MEAN CELL VOLUME 92 fl (80.0-100.0); MEAN CORPUSCULAR HEMOGLOBIN 29 pg (27.0-31.0); MEAN CORPUSCULAR HGB CONC 32 g/dl (33.0-37.0); MEAN PLATELET VOLUME 9.9 fl (7.4-10.4); MONO # 0.7 (0.1-0.6); MONO % 6.6 % (1.7-9.3); PLATELET COUNT 180 K/mm3 (130-400); RED BLOOD COUNT 3.62 M/mm3 (4.20-5.60); REDCELL DISTRIBUTION WIDTH-CV 16.6 % (11.5-14.5)
[2019-06-20 07:35] LABS: HEMATOCRIT 33.3 % (42.0-52.0)
[2019-06-20 07:38] LABS: CALCIUM 8.3 mg/dL (8.4-10.2); CREATININE, serum 0.89 (0.66-1.25); MAGNESIUM 1.9 mg/dL (1.6-2.3); POTASSIUM 4.6 mmol/L (3.4-5.0)
--- NOTE | 2019-06-20 08:00 | NUR ---
UPON ENTRY TO THE ROOM THE PATIENT IS RESTING IN BED. PATIENT IS DROWSY BUT AROUSES EASILY TO NAME. PATIENT IS A&OX4. VSS. TELE IN PLACE. BOWEL SOUNDS ACTIVE ALL FOUR QUADRANTS. PATIENT TOLERATING CLEAR LIQUIDS WITHOUT ANY COMPLAINTS OF N/V. ABDOMINAL LAP SITES X5 ORACLE ANALYST WITH EDGES WELL APPROXIMATED. LOW ABDOMINAL TRANSVERSE INCISION MARY WITH EDGES WELL APPROXIMATED. POSITIVE PEDAL PULSES EQUAL BILATERALLY. PICC LINE TO RUE. PATIENT HAS A PRODUCTIVE COUGH THAT'S UNOBSERVED BY THIS NURSE. PATIENT DENIES PAIN OR SHORTNESS OF BREATH. PATIENT DENIES PASSING FLATUS AT THIS TIME. CALL LIGHT WITHIN REACH. NO OTHER NEEDS AT THIS TIME.
--- NOTE | 2019-06-20 19:12 | NUR ---
BEDSIDE SHIFT REPORT GIVEN TO ANDREA FREDERICK.
--- NOTE | 2019-06-20 22:44 | NUR ---
PT STATES HE'S REALLY HAVING NO PAIN. PT PASSING GAS. NO N/V.
[2019-06-21 03:50] VITALS: BP 122/58; PULSE 59; TEMP 97.8
--- NOTE | 2019-06-21 06:44 | NUR ---
PT HAS HAS SEVERAL LOOSE STOOLS DURING THE NIGHT. PT HAS APPARENTLY BEEN EMPTYING HIS OWN KEN DRAIN BUT HAS NOT COLLECTED OR MEASURED THE OUTPUT.
[2019-06-21 07:04] LABS: BASO % 0.3 % (0.0-2.0); EOS % 0.6 % (0-4.0); GRAN # 5.7 (1.4-6.5); GRAN % 83.2 % (42.2-75.2); LYMPH # 0.6 (1.2-3.4); LYMPH % 8.8 % (20.0-51.0); MEAN CELL VOLUME 93 fl (80.0-100.0); MEAN CORPUSCULAR HGB CONC 31 g/dl (33.0-37.0); MEAN PLATELET VOLUME 9.6 fl (7.4-10.4); MONO # 0.4 (0.1-0.6); MONO % 6.5 % (1.7-9.3); PLATELET COUNT 156 K/mm3 (130-400); RED BLOOD COUNT 3.19 M/mm3 (4.20-5.60); REDCELL DISTRIBUTION WIDTH-CV 16.6 % (11.5-14.5)
[2019-06-21 07:05] LABS: HEMATOCRIT 29.5 % (42.0-52.0); HEMOGLOBIN 9.2 g/dl (13.5-18.0); MEAN CORPUSCULAR HEMOGLOBIN 29 pg (27.0-31.0)
[2019-06-21 07:07] LABS: CALCIUM 7.9 mg/dL (8.4-10.2); CREATININE, serum 0.75 (0.66-1.25); POTASSIUM 4.2 mmol/L (3.4-5.0)
--- NOTE | 2019-06-21 08:00 | NUR ---
SEE MORNING SHIFT ASSESSMENT. PATIENT A&OX4. VSS. BOWEL SOUNDS ACTIVE TO LOWER QUADRANTS. UPPER BOWEL SOUNDS HYPOACTIVE. PATIENT TOLERATING FULL LIQUIDS WITHOUT ANY COMPLAINTS OF PAIN, NAUSEA OR VOMITING. ABDOMEN SLIGHTLY DISTENDED BUT SOFT UPON PALPATION. PATIENT PASSING FLATUS. CALL LIGHT WITHIN REACH. PATIENT DENIES ANY NEEDS AT THIS TIME.
[2019-06-21 09:08] VITALS: BP 133/64; PULSE 62; TEMP 97.1
[2019-06-21 12:32] VITALS: BP 132/62; PULSE 62; TEMP 98
--- NOTE | 2019-06-21 15:14 | NUR ---
SW followed up with Patient in regards to discharge plan. Patient indicated that his provider mentioned that he may be going home tomorrow. Patient noted that D/C plan remained the same and that as things go he will be returing home with his Rocio.
[2019-06-21 17:18] VITALS: BP 131/57; PULSE 63; TEMP 98.3
--- NOTE | 2019-06-21 18:11 | NUR ---
PATIENT RESTING IN BED WITH FAMILY PRESENT AT THE BEDSIDE. PATIENT STATES THAT DINNER WENT WELL. NO COMPLAINTS OF PAIN, NAUSEA OR VOMITING. CALL LIGHT WITHIN REACH. PATIENT DENIES ANY NEEDS AT THIS TIME.
--- NOTE | 2019-06-21 19:04 | NUR ---
REPORT GIVEN TO ANDREA COCHRAN.
[2019-06-21 19:17] VITALS: BP 128/58; PULSE 69; TEMP 98.1
[2019-06-21 23:20] VITALS: BP 126/64; PULSE 64; TEMP 98.7
--- NOTE | 2019-06-22 00:07 | NUR ---
PATIENT DOING WELL TONIGHT. RESTING COMFORTABLY IN BED. ALERT AND ORIENTED. PATIENT SLOW TO RESPOND DURING CONVERSATION. X 5 LAPS CDI AND OPEN TO AIR. LOW TRANSVERSE CDI AND OPEN TO AIR. TOOK SCHEDULED MEDS WITH NO DIFFICULTY. WBG WITHIN NORMAL LIMITS, NO INSULIN NEEDED. VOIDED 350 SAYDA URINE. STATES HE IS PASSING GAS. RUE PICC PATENT AND FLUSHES WITH GOOD BLOOD RETURN TO BOTH PORTS. NO FURTHER NEEDS AT THIS TIME.
--- NOTE | 2019-06-22 00:35 | NUR ---
CALLED BY CRITICAL CARE THAT PATIENT HAD 8 BEAT RUN OF AFIB WITH RVR AND VTACH. CALLELD TO BRIGITTE. ORDERS TO CONTINUE TO MONITOR PATIENT. NO FURTHER NEEDS AT THIS TIME.
[2019-06-22 04:00] VITALS: BP 126/65; PULSE 61; TEMP 97.7
[2019-06-22 06:20] LABS: BASO % 0.3 % (0.0-2.0); EOS # 0.1 (0.0-0.7); EOS % 1.2 % (0-4.0); GRAN # 4.8 (1.4-6.5); GRAN % 80.8 % (42.2-75.2); LYMPH # 0.7 (1.2-3.4); LYMPH % 11.2 % (20.0-51.0); MEAN CELL VOLUME 92 fl (80.0-100.0); MEAN CORPUSCULAR HGB CONC 31 g/dl (33.0-37.0); MEAN PLATELET VOLUME 9.9 fl (7.4-10.4); MONO # 0.4 (0.1-0.6); PLATELET COUNT 144 K/mm3 (130-400); REDCELL DISTRIBUTION WIDTH-CV 16.2 % (11.5-14.5)
[2019-06-22 06:25] LABS: HEMATOCRIT 29.5 % (42.0-52.0); HEMOGLOBIN 9.2 g/dl (13.5-18.0); MEAN CORPUSCULAR HEMOGLOBIN 29 pg (27.0-31.0)
[2019-06-22 06:34] LABS: CALCIUM 7.9 mg/dL (8.4-10.2); CREATININE, serum 0.7 (0.66-1.25); POTASSIUM 4.1 mmol/L (3.4-5.0)
[2019-06-22 07:39] VITALS: BP 131/65; PULSE 61; TEMP 97.7
--- NOTE | 2019-06-22 08:00 | NUR ---
PATIENT IS SITTING UP IN BED THIS MORNING. PATIENT IS A&OX4. VSS. BOWEL SOUNDS ACTIVE ALL FOUR QUADRANTS. PATIENT TOLERATING DIET WITHOUT ANY COMPLAINTS OF N/V. ABDOMINAL LAP SITES X5 SERVICE TECH WITH EDGES WELL APPROXIMATED. ABDOMEN LOW TRANSVERSE SERVICE TECH WITH EDGES WELL APPROXIMATED. PATIENT REPORTS HAVING A BOWEL MOVEMENT THIS MORNING AND STATES THAT HE DID NOT SEE ANY BLOOD. PICC LINE TO RUE. CALL LIGHT WITHIN REACH. PATIENT DENIES ANY NEEDS AT THIS TIME.
--- NOTE | 2019-06-22 09:37 | NUR ---
Follow-up visit; Patient thanked for her concern and visit. Data Entry Representative continues to keep Rell in her prayers.
[2019-06-22 11:35] VITALS: BP 137/74; PULSE 68; TEMP 97.9
[2019-06-22] MEDS ORDERED: ZEBETA 5MG5 MG PO (14:07)
[2019-06-22] MEDS ORDERED: PROTONIX 40MG T40 MG PO (14:10)
--- NOTE | 2019-06-22 15:09 | NUR ---
JOAN attended clinical rounds. The patient is to discharge back home with his today, 06/22. JOAN and Jerson, with PT, met with the patient to review discharge plan and to discuss outpatient PT and home health. The patient reports that he is not interested in either of those at this time and would rather just see how things go at home first and then follow up with his PCP. JOAN then presented and explained the IM form to the patient. The patient verbalized understanding, signed, and he was provided a copy. No additional needs at this time.
--- NOTE | 2019-06-22 17:02 | NUR ---
DISCHARGE INSTRUCTIONS REVIEWED WITH PATIENT AND . ALL QUESTIONS ANSWERED. PATIENT PERSONAL BELONGINGS GATHERED. PATIENT TAKEN TO PERSONAL VEHICLE VIA WHEELCHAIR BY SURGICAL STAFF. PATIENT DISCHARGED.
== END 2019-06-22 17:02 | disposition home or self-care (01) | DRG 330 ==
LOC: SURG 13:28
PROVIDERS: Family Medicine; Hospitalist; Nurse Practitioner Family; Physician Assistant; ADMIT Surgery
PROC: 0DBL8ZX Excision of Transverse Colon, Via Natural or Artificial Opening Endoscopic, Diagnostic (ICD-10-PCS; 2019-06-14)
PROC: 0DB18ZX Excision of Upper Esophagus, Via Natural or Artificial Opening Endoscopic, Diagnostic (ICD-10-PCS; 2019-06-14 08:00)
PROC: 02HV33Z Insertion of Infusion Device into Superior Vena Cava, Percutaneous Approach (ICD-10-PCS; 2019-06-18)
PROC: 8E0W4CZ Robotic Assisted Procedure of Trunk Region, Percutaneous Endoscopic Approach (ICD-10-PCS; 2019-06-19)
PROC: 0DTL4ZZ Resection of Transverse Colon, Percutaneous Endoscopic Approach (ICD-10-PCS; principal; 2019-06-19 14:15)
DX: C18.5 Malignant neoplasm of splenic flexure (principal); I50.42 Chronic combined systolic (congestive) and diastolic (congestive) heart failure; I48.21 Permanent atrial fibrillation; I47.1 Supraventricular tachycardia; D62 Acute posthemorrhagic anemia; I25.10 Atherosclerotic heart disease of native coronary artery without angina pectoris; G20 Parkinson's disease; K20.9 Esophagitis, unspecified; E87.6 Hypokalemia; E11.42 Type 2 diabetes mellitus with diabetic polyneuropathy; E11.51 Type 2 diabetes mellitus with diabetic peripheral angiopathy without gangrene; L21.9 Seborrheic dermatitis, unspecified; J44.9 Chronic obstructive pulmonary disease, unspecified; I48.91 Unspecified atrial fibrillation; Z95.0 Presence of cardiac pacemaker; Z85.828 Personal history of other malignant neoplasm of skin; Z95.5 Presence of coronary angioplasty implant and graft; Z87.891 Personal history of nicotine dependence
CPT/HCPCS: 99222-AI; 99231-AI; 99232-AI; 99239; A4314; A9284; C1751; C9113; J1100; J1650; J1815; J2370; J2405; J2704; J3475; J7030; J7120; P9016; Q9967

== ENCOUNTER → 2019-07-07 | Outpatient (CLI) | payer MEDICARE ==
[~2019-07-07] MED LIST changes: +LASIX 40MG TABL40 MG PO; +PLETAL50 MG PO; +ROXICODONE 55 MG/TAB PO; +ZEBETA 5MG5 MG PO
== END ==
LOC: COL.VAS 09:55
DX: Z13.89 Encounter for screening for other disorder (principal); R60.0 Localized edema

== ENCOUNTER 2019-07-09 18:16 | Inpatient (IN) | payer MEDICARE ==
[~2019-07-09] VITALS: Ht 180.3 cm; Wt 67.4 kg
[~2019-07-09 18:16] MED LIST changes: -LASIX 40MG TABL40 MG PO; -PLETAL50 MG PO; -ROXICODONE 55 MG/TAB PO
[2019-07-09 19:54] LABS: BASO % 0.2 % (0.0-2.0); EOS % 0.2 % (0-4.0); GRAN # 4.8 (1.4-6.5); GRAN % 83.4 % (42.2-75.2); LYMPH # 0.6 (1.2-3.4); LYMPH % 9.6 % (20.0-51.0); MEAN CELL VOLUME 90 fl (80.0-100.0); MEAN CORPUSCULAR HGB CONC 31 g/dl (33.0-37.0); MEAN PLATELET VOLUME 9.6 fl (7.4-10.4); MONO # 0.4 (0.1-0.6); MONO % 6.1 % (1.7-9.3); PLATELET COUNT 129 K/mm3 (130-400); RED BLOOD COUNT 3.19 M/mm3 (4.20-5.60); REDCELL DISTRIBUTION WIDTH-CV 16.6 % (11.5-14.5)
[2019-07-09 19:57] LABS: HEMATOCRIT 28.8 % (42.0-52.0); HEMOGLOBIN 8.9 g/dl (13.5-18.0); MEAN CORPUSCULAR HEMOGLOBIN 28 pg (27.0-31.0)
[2019-07-09 20:11] LABS: ALBUMIN 3.1 gm/dL (3.5-5.0); BILIRUBIN,TOTAL 1.2 mg/dL (0.0-1.0); C-REACTIVE PROTEIN 2.8 mg/dL (0.0-0.9); CALCIUM 8.4 mg/dL (8.4-10.2); CREATININE, serum 0.67 (0.66-1.25); TOTAL PROTEIN 6.3 gm/dL (6.4-8.2)
[2019-07-09] MEDS ORDERED: PLETAL 100MG T100 MG PO (20:11)
[2019-07-09] MEDS ORDERED: PLETAL50 MG PO (20:11)
[2019-07-09 20:20] LABS: TROPONIN-I 0.024 ng/mL (0.000-0.035)
[2019-07-09 22:21] LABS: POTASSIUM 3.1 mmol/L (3.4-5.0)
[2019-07-09 22:55] LABS: COLLECTION METHOD CLEAN CATCH
[2019-07-09 23:03] LABS: MUCOUS Present /lpf; PH 5 (5-8); SQUAMOUS EPITHELIAL 0-2 /hpf; URINE APPEARANCE Hazy; URINE BACTERIA None Seen /hpf; URINE BILIRUBIN Negative (NEGATIVE); URINE BLOOD 3+ (NEGATIVE); URINE CALCIUM OXALATE CRYSTAL Present /hpf; URINE COLOR Amber; URINE GLUCOSE Negative (NEGATIVE); URINE KETONE Negative (NEGATIVE); URINE LEUKOCYTE ESTERASE Negative (NEGATIVE); URINE NITRATE Negative (NEGATIVE); URINE PROTEIN(semi-quant) 1+ (NEGATIVE); URINE RBC >50 /hpf; URINE UROBILINOGEN >=4.0 mg/dL (NEGATIVE)
[2019-07-09 23:54] VITALS: BP 145/72; PULSE 66; TEMP 98.2
[2019-07-10] VITALS (13 sets, daily range): BP systolic 109–136; BP diastolic 55–75; PULSE 54–90; TEMP 97.3–98.3
--- NOTE | 2019-07-10 00:51 | NUR ---
Admitted to medical floor from ER with back pain, compression fx, anemia, CHF-VSS, states back pain 2/ at this time- will give one [place] to keep the pain under control, voiding per urinal, INT to left AC, 02 at 1L/nc, denies SOB, understands to call for assistance up- given some applesauce and pudding as a snack, no other requests-
[2019-07-10 01:07] LABS: TROPONIN-I 0.025 ng/mL (0.000-0.035)
[2019-07-10 01:25] LABS: THYROID STIMULATING HORMONE 2.9 uIU/mL (0.465-4.680)
[2019-07-10] MEDS ORDERED: PROTONIX 40MG T40 MG PO (03:01)
--- NOTE | 2019-07-10 04:48 | NUR ---
Did go down to CT for c-spine and head CT per orders - Has been resting now- states pain to back 09/14-will give another [place] at this time- states they are effective for pain relief. bed alarm on- very insteady on feet,pt states did fall at home yesterday- High fall risk
[2019-07-10 06:15] LABS: BASO % 0.2 % (0.0-2.0); GRAN # 4.9 (1.4-6.5); LYMPH # 0.6 (1.2-3.4); LYMPH % 9.8 % (20.0-51.0); MEAN CELL VOLUME 91 fl (80.0-100.0); MEAN CORPUSCULAR HGB CONC 31 g/dl (33.0-37.0); MEAN PLATELET VOLUME 9.6 fl (7.4-10.4); MONO # 0.3 (0.1-0.6); MONO % 5.7 % (1.7-9.3); PLATELET COUNT 129 K/mm3 (130-400); RED BLOOD COUNT 3.07 M/mm3 (4.20-5.60); REDCELL DISTRIBUTION WIDTH-CV 16.8 % (11.5-14.5)
[2019-07-10 06:34] LABS: CALCIUM 8.1 mg/dL (8.4-10.2); CHOLESTEROL RISK RATIO 2.5; CREATININE, serum 0.7 (0.66-1.25); POTASSIUM 3.4 mmol/L (3.4-5.0)
[2019-07-10 06:46] LABS: TROPONIN-I 0.035 ng/mL (0.000-0.035)
[2019-07-10 06:48] LABS: HEMATOCRIT 27.8 % (42.0-52.0); HEMOGLOBIN 8.7 g/dl (13.5-18.0); MEAN CORPUSCULAR HEMOGLOBIN 28 pg (27.0-31.0)
--- NOTE | 2019-07-10 10:24 | NUR ---
Initial visit; Rell thanked for stopping by to say hello and check on him.
--- NOTE | 2019-07-10 14:39 | NUR ---
SW met with the patient to discuss discharge plan and to complete the Re-admission Interview. The patient recently discharged from the hospital, 06/22, and returned home with his and no services. He states he was doing good, but then his legs quit on him. He states that this has happened before to him. He states that he followed up with his PCP prior to hospitalization and took his medications as prescribed. The patient lives in [facility] with his , Rocio (ph#[phone]). He reports independence with ADLs and has a 4WW and a wheelchair. The patient's PCP is Dr. Ambrocio Arizmendi and he receives his medications at [facility]. He reports no difficulties obtaining his meds. The patient does not have advanced directives in EMR, but he states that he does have them completed. He states that his is his DPOA-HC. The patient's PCP is recommending SNF for the patient. SW discussed Dr. Arizmendi's recommendation. The patient was open to SNF. SW presented his with Medicare.gov's list of nursing homes around [place]. The patient states that he would need to review the list with his . SW attempted to contact the patient's . SW left her a voicemail and will continue to follow.
--- NOTE | 2019-07-10 15:10 | NUR ---
TRACKMAN CALLED THIS NURSE ABOUT PT PACEMAKER, OBTAINED PACEMAKER INFO, TRACKMAN CALLED [facility] AND PACEMAKER IS NOT COMPATIBLE WITH MRI, UNABLE TO GET MRI.
--- NOTE | 2019-07-10 16:24 | NUR ---
The patient's , Rocio, contacted JOAN back. Rocio is in agreeance to SNF for the patient. JOAN reviewed Medicare.gov's list of the diifferent nursing homes around [place]. The patient's chose 1) [facility] 2) [facility]. JOAN then met with the patient to review her preferences. The patient was in agreeance to her choices. JOAN presented and explained the Patient Choice Form to the patient. The patient verbalized understanding, signed, and he was provided a copy. JOAN contacted and faxed a referral to both facilities. SW awaiting their screens.
--- NOTE | 2019-07-10 17:30 | NUR ---
RECIEVING BLOOD TRANFUSION AT THIS TIME. REMINED WITH PT FOR 15 MINS. NO NOTED S/S OF ADVERSE REACTION. PLEASENT AND COOPERATIVE WIT CARES THIS SHIFT. ADMISNTIERED PIEDAD FOR BACK PAIN AFTER WORKING WITH PT/OT. NO OTHER ISSUES OR CONSERNS VOICED THIS SHIFT.
--- NOTE | 2019-07-10 20:00 | NUR ---
Shift assessment complete. Pt resting in bed, awake, a&o, cooperative c cares. Pt continued c/o back/neck pain rated "6/10", will provide PRN pain med c HS meds per pt req. Pt denies any other c/o. IV patent; blood transfusion in progress s complications. Tele in place. Pt denies needs at this time. Call light in reach, bed alarm on. Will continue to monitor.
[2019-07-11 04:44] VITALS: BP 112/59; PULSE 65; TEMP 97.9
[2019-07-11 07:10] LABS: BASO % 0.5 % (0.0-2.0); EOS % 0.5 % (0-4.0); GRAN % 75.4 % (42.2-75.2); LYMPH # 0.6 (1.2-3.4); MEAN CELL VOLUME 91 fl (80.0-100.0); MEAN CORPUSCULAR HGB CONC 31 g/dl (33.0-37.0); MEAN PLATELET VOLUME 9.4 fl (7.4-10.4); MONO # 0.3 (0.1-0.6); MONO % 8.1 % (1.7-9.3); PLATELET COUNT 111 K/mm3 (130-400); RED BLOOD COUNT 3.12 M/mm3 (4.20-5.60); REDCELL DISTRIBUTION WIDTH-CV 16.7 % (11.5-14.5)
[2019-07-11 07:21] LABS: HEMATOCRIT 28.5 % (42.0-52.0); HEMOGLOBIN 8.8 g/dl (13.5-18.0); MEAN CORPUSCULAR HEMOGLOBIN 28 pg (27.0-31.0)
[2019-07-11 07:27] LABS: CALCIUM 8.1 mg/dL (8.4-10.2); CREATININE, serum 0.68 (0.66-1.25); POTASSIUM 3.8 mmol/L (3.4-5.0)
[2019-07-11 08:12] VITALS: BP 132/81; PULSE 60; TEMP 98.1
[2019-07-11 11:17] VITALS: BP 109/55; PULSE 61; TEMP 98.4
[2019-07-11 16:42] VITALS: BP 117/65; PULSE 65; TEMP 97.4
--- NOTE | 2019-07-11 17:58 | NUR ---
PT VOICED HE WAS UNABLE TO KEEP UP WITH HIS URINATION AND FELT LIKE A CATHETER WOULD BE A GOOD IDEA. PT HAD 3 INCONTINENT OF EPISODES OF URINE THIS SHIFT. ALONG WITH VOIDING IN THE URNINAL AT TIMES. DISCUSSED EXTERNAL MALE CATHETER WITH PT. FELT LIKE HE WOULD LIKE TO TRY IT. THIS NURSE APPLIED EXTERNAL CATH WITHOUT ISSUE. DISSCUSSED THAT THE LASIX HE WAS GIVEN WAS THE REASON HE WAS VOIDING ALOT.
--- NOTE | 2019-07-11 20:00 | NUR ---
Shift assessment complete. Pt resting in bed, awake, a&o, cooperative c cares. Pt continued c/o back pain, will provide PRN Maceo c HS meds. Pt denies any other c/o at this time. INT patent. Tele in place. External catheter to DD. Pt denies needs at this time. Call light in reach, bed alarm on. Will continue to monitor.
[2019-07-11 21:04] VITALS: BP 121/59; PULSE 61; TEMP 98.6
[2019-07-12 00:33] VITALS: BP 118/76; PULSE 71; TEMP 98.1
--- NOTE | 2019-07-12 06:55 | NUR ---
awake reting in bed, bedside shift report received from ANDREA Block
[2019-07-12 06:58] LABS: BASO % 0.2 % (0.0-2.0); EOS % 0.3 % (0-4.0); GRAN # 5.6 (1.4-6.5); GRAN % 83.9 % (42.2-75.2); HEMOGLOBIN 10.4 g/dl (13.5-18.0); LYMPH # 0.7 (1.2-3.4); MEAN CELL VOLUME 91 fl (80.0-100.0); MEAN CORPUSCULAR HEMOGLOBIN 29 pg (27.0-31.0); MEAN CORPUSCULAR HGB CONC 32 g/dl (33.0-37.0); MEAN PLATELET VOLUME 9.2 fl (7.4-10.4); MONO # 0.3 (0.1-0.6); MONO % 5.1 % (1.7-9.3); PLATELET COUNT 127 K/mm3 (130-400); RED BLOOD COUNT 3.62 M/mm3 (4.20-5.60); REDCELL DISTRIBUTION WIDTH-CV 16.6 % (11.5-14.5)
[2019-07-12 07:11] LABS: CALCIUM 8.5 mg/dL (8.4-10.2); CREATININE, serum 0.68 (0.66-1.25)
[2019-07-12 07:15] LABS: HEMATOCRIT 32.8 % (42.0-52.0)
--- NOTE | 2019-07-12 07:30 | NUR ---
bed alarm sounding and he is trying to get up to void, assisted up and voided approx 100ml clear marleni urine, offered to him to sit in recliner but he declines, states the pain pill given short awhile ago has not "kicked" in yet, full assessment completed, see interventions for further info, states had bowel movement yesterday, instructed him on how pain pills can cause constipation and if he feels this is becoming a problem to notify nursing staff, verbalizes understanding
[2019-07-12 08:44] VITALS: BP 123/69; PULSE 66; TEMP 98.5
[2019-07-12 09:36] VITALS: BP 125/62; PULSE 77
--- NOTE | 2019-07-12 09:52 | NUR ---
patient called and stated he was having some pain in his chest, ANDREA Whitfield went and assessed and he denied any pain radiating or shortness of breath, spoke with medical equipment repair technician regarding this and she has not observed any heart irregularities, patient is sitting up on side of bed now and denies pain
--- NOTE | 2019-07-12 10:03 | NUR ---
Dr Carrington in to see patient
--- NOTE | 2019-07-12 10:51 | NUR ---
medicated with scheduled IV lasix, discussed with him if he wanted the external catheter again today and he declined, instructed to call when he needs to use the urinal and verbalizes understanding, repositioned in bed and bed alarm on
--- NOTE | 2019-07-12 11:55 | NUR ---
telemetry removed by patient, he states he just feels a little out of breath, moving around in bed, Dr Hightower in to see patient and assessment completed, O2 on at 1L/NC
[2019-07-12 12:28] VITALS: BP 135/69; PULSE 63; TEMP 97.2
--- NOTE | 2019-07-12 12:30 | NUR ---
in to visit, medicated with trmasol 25mg as scheduled
--- NOTE | 2019-07-12 14:14 | NUR ---
states his back pain is better since having the tramadol, had lunch and tolerated well
--- NOTE | 2019-07-12 16:00 | NUR ---
is "fidgety" in bed, up and ambulated out in to the ag and then back to room and into recliner
--- NOTE | 2019-07-12 16:07 | NUR ---
came to desk and stated he is trying to get out of chair and is now confused, entered room and he was unable to tell me whre he was, reoriented and reminded him he was in the hospital because he had fallen and hurt his back, then he remembers this,
[2019-07-12 16:49] VITALS: BP 122/64; PULSE 65; TEMP 97.4
--- NOTE | 2019-07-12 16:53 | NUR ---
informed Dr Hightower of patient's increasing confusion, will continue to monitor
--- NOTE | 2019-07-12 17:21 | NUR ---
was standing up from chair independently, assited into bathroom and voided clear marleni urine, then assisted into bed with bed alarm on
--- NOTE | 2019-07-12 18:53 | NUR ---
bedside shift report given to ANDREA Block
[2019-07-12 19:35] VITALS: BP 113/55; PULSE 65; TEMP 98.2
--- NOTE | 2019-07-12 20:10 | NUR ---
Shift assessment complete. Pt resting in bed, awake, alert, oriented to person/place but c increased confusion tonight. Pt remains pleasant et cooperative c cares. Cont. c/o low back pain rated "6/10"; provided c PRN pain med per pt request. called to check in and req Tramadol not be given as she believes that this is what has caused the confusion. Tele in place. INT patent. Pt denies further needs at this time. Call light in reach, bed alarm on. Will continue to monitor.
[2019-07-13 03:33] VITALS: BP 105/53; PULSE 71
--- NOTE | 2019-07-13 05:57 | NUR ---
Copy of EKG given to Mckayla MENDEZ due to interpretation of "Critical Test Result".
[2019-07-13 06:30] LABS: BASO % 0.2 % (0.0-2.0); EOS % 0.4 % (0-4.0); GRAN % 79.4 % (42.2-75.2); LYMPH # 0.6 (1.2-3.4); LYMPH % 12.4 % (20.0-51.0); MEAN CELL VOLUME 90 fl (80.0-100.0); MEAN CORPUSCULAR HGB CONC 32 g/dl (33.0-37.0); MEAN PLATELET VOLUME 9.9 fl (7.4-10.4); MONO # 0.4 (0.1-0.6); PLATELET COUNT 123 K/mm3 (130-400); RED BLOOD COUNT 3.35 M/mm3 (4.20-5.60); REDCELL DISTRIBUTION WIDTH-CV 17.1 % (11.5-14.5)
[2019-07-13 06:35] LABS: HEMOGLOBIN 9.5 g/dl (13.5-18.0); MEAN CORPUSCULAR HEMOGLOBIN 28 pg (27.0-31.0)
[2019-07-13 06:51] LABS: CALCIUM 8.4 mg/dL (8.4-10.2); CREATININE, serum 0.65 (0.66-1.25); POTASSIUM 3.8 mmol/L (3.4-5.0)
[2019-07-13 08:33] VITALS: BP 110/54; PULSE 60; TEMP 98.4
--- NOTE | 2019-07-13 09:44 | NUR ---
PATIENT SITTINGB UP IN RECLINER. STATES "I AM VERY TIRED". DOES NOT ANSWER ORIENTATION QUESTIONS. PRESENTS WITH BLANK STARE. DENIES C/O PAIN. BILATERAL HANDS WITH STRONG METHODS SPECIALIST TO COMMAND. ORAL MEDICATIONS ADMINISTERED WITH NO CONCERNS. NO FACIAL DROOPING NOTED. VICKI BERKOWITZ HOSPITALIST PA NOTIFIED. TO ROUND ON PATIENT. CHAIR EXIT ALARM IN PLACE AND ARMED. NONSKID SOCKS IN PLACE. CALL LIGHT WITHIN REACH.
[2019-07-13] MEDS ORDERED: LASIX 40MG TABL40 MG PO (10:13)
[2019-07-13] MEDS ORDERED: ROXICODONE 55 MG/TAB PO (10:15)
[2019-07-13 11:37] VITALS: BP 103/61; PULSE 64; TEMP 98.9
[2019-07-13] MEDS ORDERED: TYLENOL 325MG325 MG PO (11:48)
--- NOTE | 2019-07-13 13:00 | NUR ---
Road Crossing Guard attended clinical rounds with the team. Patient ready to discharge today. JOAN faxed updates to both [facility] and [facility]. JOAN was contacted by Katie who advised they could accept patient. JOAN and Katie collaborated to set up transport time for 1:00pm. JOAN contacted patient's , Rocio to provide update and she is in agreeance with discharge plan. JOAN met with patient to review discharge plan and present IM. Patient reviewed IM form and provided signature. JOAN placed original in chart and provided patient with a copy. JOAN updated CITLALLI Donato and ANDREA Fields on transport time. JOAN notified [facility] that patient's first preference accepted. JOAN faxed discharge orders to [facility] and patient to discharge today at 1:00pm. JOAN left voicemail message for Eduarda, Nurse [employer] Layer at [facility] to notify her that patient to discharge to [facility].
--- NOTE | 2019-07-13 14:22 | NUR ---
PATIENT DC TO [facility] VIA FACILITIES TRANSPORTATION @ 1400. DC PACKET SENT WITH PATIENT. AT TIME OF TRANSFER PATIENT A/O X4. AMBULATED TO . DENIES C/O PAIN OR DISCOMFORT AT DC. IN ATTENDANCE. ATTEMPTED TO CALL BRIANNA MELDEY AT [facility] # [phone]. LEFT TO CALL BACK AT [phone]. SOCIAL WORK MANJULA NOTIFIED THAT UNABLE TO GIVE REPORT.
== END 2019-07-13 14:00 | DRG 542 ==
LOC: COL.ER 18:16 → MEDICAL 22:15
PROVIDERS: Emergency Medicine; Nurse Practitioner Family; Student in an Organized Health Care Education/Training Program; ADMIT Internal Medicine
DX: M48.56XA Collapsed vertebra, not elsewhere classified, lumbar region, initial encounter for fracture (principal); I50.23 Acute on chronic systolic (congestive) heart failure; I69.954 Hemiplegia and hemiparesis following unspecified cerebrovascular disease affecting left non-dominant side; I47.2 Ventricular tachycardia; R18.8 Other ascites; I25.10 Atherosclerotic heart disease of native coronary artery without angina pectoris; I48.91 Unspecified atrial fibrillation; I71.4 Abdominal aortic aneurysm, without rupture; D64.9 Anemia, unspecified; E11.51 Type 2 diabetes mellitus with diabetic peripheral angiopathy without gangrene; E11.42 Type 2 diabetes mellitus with diabetic polyneuropathy; E87.6 Hypokalemia; E83.42 Hypomagnesemia; J44.9 Chronic obstructive pulmonary disease, unspecified; D69.6 Thrombocytopenia, unspecified; K21.9 Gastro-esophageal reflux disease without esophagitis; K29.70 Gastritis, unspecified, without bleeding; G20 Parkinson's disease; W18.30XA Fall on same level, unspecified, initial encounter; Y92.009 Unspecified place in unspecified non-institutional (private) residence as the place of occurrence of the external cause; R82.81 Pyuria; Z95.0 Presence of cardiac pacemaker; Z85.828 Personal history of other malignant neoplasm of skin; Z87.891 Personal history of nicotine dependence; Z88.1 Allergy status to other antibiotic agents; Z88.6 Allergy status to analgesic agent
CPT/HCPCS: 99223-AI; 99233-AI; 99239; C9113; J1815; J1940; J2405; J3010; J3475; J7030; P9016; Q9967

== ENCOUNTER 2019-07-21 08:36 | Emergency (ER) | payer MEDICARE ==
[2006-02-08 12:46] VITALS: BP 127/80
[~2019-07-21] VITALS: Ht 180.3 cm; Wt 66.8 kg
[~2019-07-21 08:36] MED LIST changes: +LASIX 40MG TABL40 MG PO; +PLETAL50 MG PO; +ROXICODONE 55 MG/TAB PO
[2019-07-21 08:39] VITALS: TEMP 97.9
[2019-07-21 12:38] LABS: BASO % 0.2 % (0.0-2.0); GRAN # 5.2 (1.4-6.5); GRAN % 82.6 % (42.2-75.2); LYMPH # 0.6 (1.2-3.4); LYMPH % 10.3 % (20.0-51.0); MEAN CELL VOLUME 90 fl (80.0-100.0); MEAN CORPUSCULAR HGB CONC 32 g/dl (33.0-37.0); MEAN PLATELET VOLUME 8.8 fl (7.4-10.4); MONO # 0.4 (0.1-0.6); MONO % 6.3 % (1.7-9.3); PLATELET COUNT 113 K/mm3 (130-400); RED BLOOD COUNT 3.09 M/mm3 (4.20-5.60)
[2019-07-21 12:44] LABS: HEMATOCRIT 27.7 % (42.0-52.0); HEMOGLOBIN 8.9 g/dl (13.5-18.0); MEAN CORPUSCULAR HEMOGLOBIN 29 pg (27.0-31.0)
[2019-07-21 12:50] LABS: CALCIUM 8.6 mg/dL (8.4-10.2); CREATININE, serum 0.74 (0.66-1.25)
[2019-07-21] MEDS ORDERED: CIPRO 500MG TA500 MG PO (13:50)
[2019-07-21 13:55] VITALS: BP 106/63; PULSE 64
== END 2019-07-21 14:15 | disposition home or self-care (01) ==
LOC: COL.ER 08:36
PROVIDERS: Emergency Medicine
DX: M54.5 Low back pain (principal); I50.9 Heart failure, unspecified; I25.10 Atherosclerotic heart disease of native coronary artery without angina pectoris; I48.91 Unspecified atrial fibrillation; J44.9 Chronic obstructive pulmonary disease, unspecified; Z87.891 Personal history of nicotine dependence; Z79.84 Long term (current) use of oral hypoglycemic drugs; Z79.82 Long term (current) use of aspirin; W06.XXXA Fall from bed, initial encounter; Y92.129 Unspecified place in nursing home as the place of occurrence of the external cause

== ENCOUNTER → 2019-08-03 | Outpatient (CLI) | payer MEDICARE ==
[~2019-08-03] MED LIST changes: +CIPRO 500MG TA500 MG PO
[2019-08-03 21:36] LABS: COLLECTION METHOD CLEAN CATCH
[2019-08-03 22:02] LABS: MUCOUS Present /lpf; PH 5 (5-8); URINE APPEARANCE Hazy; URINE BACTERIA None Seen /hpf; URINE BILIRUBIN Negative (NEGATIVE); URINE BLOOD Negative (NEGATIVE); URINE CALCIUM OXALATE CRYSTAL Present /hpf; URINE COLOR Yellow; URINE GLUCOSE Negative (NEGATIVE); URINE KETONE Negative (NEGATIVE); URINE LEUKOCYTE ESTERASE Trace (NEGATIVE); URINE NITRATE Negative (NEGATIVE); URINE PROTEIN(semi-quant) 1+ (NEGATIVE)
== END ==
LOC: ZCOL.LAB 20:48
PROVIDERS: Family Medicine
DX: Z01.89 Encounter for other specified special examinations (principal)